=== PATIENT | male | born 1970 | race Caucasian/White ===

== ENCOUNTER 2020-06-29 10:43 | Emergency (ER) | payer OTHER ==
[~2020-06-29] VITALS: Ht 177.8 cm; Wt 88.5 kg
[~2020-06-29 10:43] MED LIST: CETI10; CYCL10 PO; DIAZ10 PO; HYDACE5 PO; RXHYDACE PO
[2020-06-29] MEDS ORDERED: CEPH500 PO (13:18)
== END 2020-06-29 13:26 | disposition home or self-care (01) ==
LOC: ER 10:43
DX: S81.012A Laceration without foreign body, left knee, initial encounter (principal); Z79.899 Other long term (current) drug therapy; W06.XXXA Fall from bed, initial encounter; Y92.812 Truck as the place of occurrence of the external cause
CPT/HCPCS: 12034; 99282-25

== ENCOUNTER 2020-11-13 10:02 | Day surgery (SDC) | payer OTHER ==
[~2020-11-13] VITALS: Ht 175.3 cm; Wt 89.8 kg
[~2020-11-13 10:02] MED LIST changes: +CEPH500 PO
--- NOTE | 2020-11-13 11:04 | NUR ---
11/13/20 1104 Lainey Howell TIME OUT AND SITE CHECK DONE FOR THE LEFT KNEE BLOCK WITH DR FOWLER.
--- NOTE | 2020-11-13 11:43 | NUR ---
11/13/20 1143 Lety Olson 1MG EPI INJECTED INTO EACH OF 3 3000ML BAGS OF LR FOR IRRIGATION AND HOMEOSTASIS PER PHYSICIAN ORDER
--- NOTE | 2020-11-13 12:14 | NUR ---
11/13/20 1214 Karina Richardson ORAL AIRWAY OUT AT 1212. PT NOW ON FACE TENT AT 15L. SATS ARE 98%
== END 2020-11-13 13:44 | disposition home or self-care (01) ==
LOC: ORSCSDS 10:02
PROVIDERS: Orthopaedic Surgery
PROC: 0SBD4ZZ Excision of Left Knee Joint, Percutaneous Endoscopic Approach (ICD-10-PCS; principal; 2020-11-13 11:15)
DX: S83.242A Other tear of medial meniscus, current injury, left knee, initial encounter (principal)
CPT/HCPCS: A9270; C1713; J0171; J0690; J1100; J1885; J2250; J2405; J2704; J2795; J3010; J7120

== ENCOUNTER → 2023-01-18 | Outpatient (CLI) | payer OTHER ==
[2023-01-18 16:16] LABS: BASOPHILS ABSOLUTE AUTO 0.06 K/mm3 (0.00-0.23); BASOPHILS PERCENT AUTO 1 % (0-2); EOSINOPHILS ABSOLUTE AUTO 0.31 K/mm3 (0.00-0.68); EOSINOPHILS PERCENT AUTO 3 % (0-6); Hematocrit 45.7 % (37.0-53.0); IMMATURE GRAN ABSOLUTE AUTO 0.02 K/mm3 (0.00-0.10); IMMATURE GRAN PERCENT AUTO 0 % (0-1); LYMPHOCYTES ABSOLUTE AUTO 2.95 K/mm3 (0.84-5.20); LYMPHOCYTES PERCENT AUTO 32 % (21-46); MONOCYTES ABSOLUTE AUTO 0.79 K/mm3 (0.16-1.47); MONOCYTES PERCENT AUTO 9 % (4-13); Mean Corpuscular HGB 29.8 pg (26.0-34.0); Mean Corpuscular Volume 85 fL (80-100); Mean Platelet Volume 10.9 fL (9.1-12.4); NEUTROPHILS PERCENT AUTO 55 % (41-73); Platelet Count 228 K/mm3 (150-400); RDW Coefficient Variation 12.2 % (11.7-14.2); RDW Standard Deviation 37.4 fL (35.1-46.3); Red Blood Cell Count 5.37 M/mm3 (4.30-5.90); White Blood Cell Count 9.23 K/mm3 (4.00-11.30)
[2023-01-18 16:27] LABS: Albumin, Blood 3.8 g/dL (3.4-5.0); Albumin/Globulin Ratio 1.1 (0.8-1.8); Bilirubin, Total 0.5 mg/dL (0.1-1.0); Bun/Creatinine Ratio 9.9 (12.0-20.0); Calcium, Blood 8.8 mg/dL (8.5-10.1); Creatinine, Blood 1.21 mg/dL (0.60-1.20); Globulin, Blood 3.5 g/dL (2.2-4.0); Potassium, Blood 3.6 mmol/L (3.5-5.5); Total Protein, Blood 7.3 g/dL (6.4-8.2)
== END | disposition home or self-care (01) ==
LOC: LAB SHORT 16:11
PROVIDERS: Physician Assistant
DX: R00.2 Palpitations (principal); R06.00 Dyspnea, unspecified
CPT/HCPCS: 80053; 84484; 85025